=== PATIENT | male | born 1945 | race Caucasian/White ===

== ENCOUNTER 2016-07-07 09:32 | Outpatient (RCR) | payer MEDICARE, OTHER | END 2016-10-05 | disposition home or self-care (01) | LOC: ONC 09:32 | PROVIDERS: ATTEND Radiology Radiation Oncology | DX: C61 Malignant neoplasm of prostate (principal) ==

== ENCOUNTER 2016-11-16 05:30 | Outpatient (CLI) | payer MEDICARE, OTHER ==
[~2016-11-16] VITALS: Ht 177.8 cm; Wt 88.5 kg
[2016-11-16] MEDS ORDERED: LISI-552 PO (09:38)
[2016-11-16] MEDS ORDERED: CARV25TA PO (09:38)
[2016-11-16] MEDS ORDERED: FENO160T12 PO (09:38)
[2016-11-16] MEDS ORDERED: THYR90TA PO (09:51)
[2016-11-16] MEDS ORDERED: VARD20TA30 PO (09:51)
[2016-11-16] MEDS ORDERED: ASPI-586 PO (09:51)
[2016-11-16] MEDS ORDERED: NITR4.1S2 TL (09:51)
[2016-11-16] MEDS ORDERED: PRAV20TA3 PO (09:51)
== END 2016-11-16 09:55 ==
LOC: PREOP 05:30
PROVIDERS: ATTEND Otolaryngology Otolaryngology/Facial Plastic Surgery
DX: J34.3 Hypertrophy of nasal turbinates; Z01.818 Encounter for other preprocedural examination; J34.2 Deviated nasal septum

== ENCOUNTER 2016-11-23 07:34 | Day surgery (SDC) | payer MEDICARE, OTHER ==
[~2016-11-23] VITALS: Ht 177.8 cm; Wt 88.5 kg
[~2016-11-23 07:34] MED LIST: ASPI-586 PO; CARV25TA PO; FENO160T12 PO; LISI-552 PO; NITR4.1S2 TL; PRAV20TA3 PO; THYR90TA PO; VARD20TA30 PO
[2016-11-23 07:56] VITALS: BP 128/74
[2016-11-23] MEDS: LACTATED RINGERS 1,000 ML IV PRN ×2 (08:05→10:41)
--- NOTE | 2016-11-23 09:28 | Progress Note-Pre Operative ---
Pre-Operative Progress Note H&P Reviewed The H&P was reviewed, patient examined and no changes noted. Date Seen by Provider: Nov 23, 2016 Time Seen by Provider: 09:15 Date H&P Reviewed: Nov 23, 2016 Time H&P Reviewed: 09:15 Pre-Operative Diagnosis: Deviated Nasal Septum, Bilat Hyper of Inf Turbs CONNER CASSIDY MD Nov 23, 2016 9:28 am
[2016-11-23] MEDS ORDERED: ONDANSETRON 4 MG/2 ML (SDV) Z0FRAN ONE (09:51)
[2016-11-23] MEDS ORDERED: proPOfol 200 MG/20 ML (DIPRIVAN) VIAL IV ONE (09:51)
[2016-11-23] MEDS ORDERED: LACTATED RINGERS 1,000 ML IV ONE ×2 (09:51→11:00)
[2016-11-23] MEDS ORDERED: SEVOFLURANE (ULTANE) 15 ML INHAL SOLN ONE ×3 (09:51→10:04)
[2016-11-23] MEDS ORDERED: DEXAMETHASONE 10 MG/ML (DECADRON) 1 ML VIAL ONE (09:51)
[2016-11-23] MEDS ORDERED: LIDOCAINE PF 2% 5 ML (XYLOCAINE) VIAL ONE (09:51)
[2016-11-23] MEDS ORDERED: MIDAZOLAM 2 MG/2 ML (VERSED) VIAL ONE (09:52)
[2016-11-23] MEDS ORDERED: fentaNYL INJECTION 100 MCG/2 ML AMP ONE (09:52)
[2016-11-23] MEDS ORDERED: LIDOCAINE/EPI 1%-1:200,000 (XYLOCAINE) 10 ML VIAL ONE (09:53)
[2016-11-23] MEDS ORDERED: COCAINE HCL 4% 2 ML SYR ONE (09:53)
[2016-11-23] MEDS ORDERED: PHENYLEPHRINE 0.5% NASAL SPR (NEO-SYNEPHRINE) REG ONE (09:53)
[2016-11-23] MEDS ORDERED: ROCURONIUM 50 MG/5 ML (ZEMURON) VIAL IV ONE (10:04)
[2016-11-23] MEDS ORDERED: GLYCOPYRROLATE 0.2 MG/ML (ROBINUL) 2 ML VIAL ONE (11:06)
[2016-11-23] MEDS ORDERED: NEOSTIGMINE (BLOXIVERZ ) 1 MG/1ML 10 ML VIAL ONE (11:06)
[2016-11-23] MEDS ORDERED: D5 1/2 NS W/KCL 20 MEQ/L 1,000 ML IV SCH (11:07)
--- NOTE | 2016-11-23 11:07 | Progress Note-Post Operative ---
Post-Operative Progess Note Surgeon (s)/Hand I Cutter (s) Surgeon CONNER CASSIDY MD Hand I Cutter n/a Pre-Operative Diagnosis Deviated Nasal Septum, Bilat Hyper of Inf Turbs Post-Operative Diagnosis same Post-Op Procedure Note Date of Procedure: Nov 23, 2016 Name of Procedure Performed: Nasal Septoplasty, Bilat Red of Inf Turbs Description & Findings Description and Findings: n/a Anesthesia Type get Estimated Blood Loss minimal Packing none. Specimen(s) collected/removed nasal septum CONNER CASSIDY MD Nov 23, 2016 11:07 am
[2016-11-23] MEDS ORDERED: ACETAMINOPHEN 325 MG TABLET/CAPLET (TYLENOL) PO PRN (11:15)
[2016-11-23] MEDS ORDERED: HYDROcodone/APAP 5 MG/325 MG (LORTAB) TAB PO PRN (11:15)
[2016-11-23] MEDS ORDERED: PROMETHAZINE INJ 25 MG/ML (PHENERGAN) AMP IVP PRN (11:15)
[2016-11-23] MEDS ORDERED: fentaNYL INJECTION 100 MCG/2 ML AMP IVP PRN (11:30)
[2016-11-23] MEDS ORDERED: morphine INJ 10 MG/ML 1ML (SYR OR VIAL) IVP PRN (11:30)
[2016-11-23] MEDS ORDERED: ONDANSETRON 4 MG/2 ML (SDV) Z0FRAN IVP PRN (11:30)
[2016-11-23] MEDS ORDERED: HYDROmorphone (DILAUDID) 2 MG/ML VIAL IVP PRN (11:30)
[2016-11-23 12:05] VITALS: BP 128/63
[2016-11-23] MEDS ORDERED: HYDR-3812 PO (12:25)
[2016-11-23] MEDS ORDERED: AMOX-355 PO (12:26)
[2016-11-23 12:35] VITALS: BP 128/63
[2016-11-23 13:05] VITALS: BP 127/67
[2016-11-23 13:15] VITALS: BP 127/67
== END 2016-11-23 13:15 | disposition home or self-care (01) ==
LOC: SDC 07:34
PROVIDERS: ATTEND Otolaryngology Otolaryngology/Facial Plastic Surgery
DX: J34.2 Deviated nasal septum (principal); J34.3 Hypertrophy of nasal turbinates; E03.9 Hypothyroidism, unspecified; I10 Essential (primary) hypertension; Z95.810 Presence of automatic (implantable) cardiac defibrillator; Z79.82 Long term (current) use of aspirin; Z79.899 Other long term (current) drug therapy
CPT/HCPCS: 87081

== ENCOUNTER 2017-11-27 12:36 | Outpatient (RCR) | payer MEDICARE, OTHER ==
[~2017-11-27 12:36] MED LIST changes: +ACHD5005 PO; +AMOX-355 PO
== END 2018-02-25 | disposition home or self-care (01) ==
LOC: ONC 12:36
PROVIDERS: ATTEND Radiology Radiation Oncology
DX: C61 Malignant neoplasm of prostate (principal)
CPT/HCPCS: 99213

== ENCOUNTER 2018-05-22 09:36 | Outpatient (RCR) | payer MEDICARE, OTHER | END 2018-08-20 | disposition home or self-care (01) | LOC: ONC 09:36 | PROVIDERS: ATTEND Radiology Radiation Oncology | DX: C61 Malignant neoplasm of prostate (principal) ==

== ENCOUNTER 2019-03-04 09:28 | Outpatient (CLI) | payer MEDICARE, OTHER ==
[~2019-03-04] VITALS: Ht 177.8 cm; Wt 90.3 kg
[2019-03-04] MEDS ORDERED: SILD20TA14 PO (09:53)
[2019-03-04] MEDS ORDERED: ASPI-586 PO (09:53)
[2019-03-04] MEDS ORDERED: THYR120T2 PO (09:53)
[2019-03-04] MEDS ORDERED: NITR4.9S6 TL (09:53)
[2019-03-04 09:56] VITALS: BP 142/79
== END 2019-03-04 10:20 | disposition home or self-care (01) ==
LOC: PREOP 09:28
PROVIDERS: ATTEND Radiology Radiation Oncology
DX: Z01.818 Encounter for other preprocedural examination (principal)
CPT/HCPCS: 87081

== ENCOUNTER 2019-03-12 11:09 | Day surgery (SDC) | payer MEDICARE, OTHER ==
[~2019-03-12] VITALS: Ht 177.8 cm; Wt 90.3 kg
[2019-03-12] VITALS (11 sets, daily range): BP systolic 129–147; BP diastolic 73–95
[~2019-03-12 11:09] MED LIST changes: +NITR4.9S6 TL; +SILD20TA14 PO; +THYR120T2 PO
[2019-03-12] MEDS ORDERED: LACTATED RINGERS 1,000 ML IV PRN (11:22)
[2019-03-12] MEDS ORDERED: LEVOFLOXACIN 500 MG/100 ML IV 100 ML IV ONE (11:30)
--- NOTE | 2019-03-12 11:35 | Progress Note-Pre Operative ---
Pre-Operative Progress Note H&P Reviewed The H&P was reviewed, patient examined and no changes noted. Date Seen by Provider: Mar 12, 2019 Time Seen by Provider: 11:34 Date H&P Reviewed: Mar 12, 2019 Time H&P Reviewed: 11:34 Pre-Operative Diagnosis: Prostate cancer cT1c, PSA 10.54, [place] 7 (3+4) BENIGNO DANIELS MD Mar 12, 2019 11:35
--- NOTE | 2019-03-12 11:41 | Discharge Inst-Simple/Standard ---
Discharge Inst-Standard Reconcile Patient Problems Problems Reviewed?: Yes Discharge Medications New, Converted or Re-Newed RX: RX Given to Pt/Family Patient Instructions/Follow Up Plan of Care/Instructions/FU: 1)follow up Sunday04/08/19 at 10:30 a.m. Via [facility] for post implant scan 2)follow up Sunday04/14/19 at 2:[address] Chacon's office in [place] Activity as Tolerated: Yes Discharge Diet: No Restrictions Other Inst to Patient Please instruct patient on amaya catheter removal Tuesday 03/14 or Friday 03/17 - date per Dr. Chacon. BENIGNO DANIELS MD Mar 12, 2019 11:41
[2019-03-12] MEDS ORDERED: IOPAMIDOL 61% 30 ML (ISOVUE 300) VIAL IV ONE (13:11)
[2019-03-12] MEDS ORDERED: BACITRACIN OINTMENT 28 GM TUBE ONE (13:11)
[2019-03-12] MEDS ORDERED: DEXAMETHASONE 10 MG/ML (DECADRON) 1 ML VIAL ONE (13:29)
[2019-03-12] MEDS ORDERED: proPOfol 200 MG/20 ML (DIPRIVAN) VIAL IV ONE (13:29)
[2019-03-12] MEDS ORDERED: SEVOFLURANE (ULTANE) 15 ML INHAL SOLN ONE ×6 (13:29→15:17)
[2019-03-12] MEDS ORDERED: LIDOCAINE PF 2% 5 ML (XYLOCAINE) VIAL ONE (13:29)
[2019-03-12] MEDS ORDERED: ONDANSETRON 4 MG/2 ML (SDV) Z0FRAN ONE (13:29)
[2019-03-12] MEDS ORDERED: MIDAZOLAM 2 MG/2 ML (VERSED) VIAL ONE (13:30)
[2019-03-12] MEDS ORDERED: fentaNYL INJECTION 100 MCG/2 ML AMP ONE (13:31)
--- NOTE | 2019-03-12 15:40 | Anesthesia-General Post-Op ---
General Patient Condition Mental Status/LOC: Same as Preop Cardiovascular: Satisfactory Nausea/Vomiting: Absent Respiratory: Satisfactory Pain: Controlled Complications: Absent Post Op Complications Complications None Follow Up Care/Instructions Patient Instructions None needed. Anesthesia/Patient Condition Patient Condition Patient is doing well, no complaints, stable vital signs, no apparent adverse anesthesia problems. No complications reported per nursing. MIKKI TAPIA CRNA Mar 12, 2019 15:40
[2019-03-12] MEDS ORDERED: ONDANSETRON 4 MG/2 ML (SDV) Z0FRAN IVP PRN (15:45)
[2019-03-12] MEDS ORDERED: fentaNYL INJECTION 100 MCG/2 ML AMP IVP ONE (15:45)
[2019-03-12] MEDS ORDERED: morphine INJ 10 MG/ML 1ML (SYR OR VIAL) IVP ONE (15:45)
--- NOTE | 2019-03-12 16:02 | Progress Note-Post Operative ---
Post-Operative Progess Note Surgeon (s)/Electrician Third (s) Surgeon BENIGNO DANIELS MD Electrician Third: Marco A VARGHESE MD Pre-Operative Diagnosis Prostate cancer cT1c, PSA 10.54, [place] 7 (3+4) Post-Operative Diagnosis Same as pre-op Procedure & Operative Findings Date of Procedure 03/12/19 Procedure Performed/Findings (1) 100% Cesium 131 permanent prostate seed implant with cystogram (2) Injection of biodegradable prostate-rectal spacer utilizing the SpaceOAR system Prostate volume 45 cc Anesthesia Type General Estimated Blood Loss Estimated blood loss (mL): Minimal Specimens/Packing Specimens Removed None Packing: None internal - ABD applied to perineum BENIGNO DANIELS MD Mar 12, 2019 16:02
--- NOTE | 2019-03-12 16:25 | NUR ---
TO AMB SURG FROM PAR PER CART. ALERT, REPORTS PELVIC/PENILE "PRESSURE" TYPE DISCOMFORT RATED 1-2 ON NUMERIC SCALE. FAY CATH INTACT, PATENT TO DD BAG ON LOWER BED RAIL. CATH SECURED TO RIGHT LEG WITH STATLOCK. URINE CLEAR, MEDIUM THAKKAR IN COLOR IN TUBING. NO BLEEDING AT PERINEUM OR AT PENILE MEATUS. PO FLUIDS PROVIDED.
--- NOTE | 2019-03-12 18:30 | NUR ---
TAKING PO FLUIDS WITHOUT PROBLEM. NO CHANGE IN SITE OR PAIN ASSESSMENTS. ALERT AND CONVERSATIONAL WITH AND STAFF. PRESCRIPTIONS FOR CIPRO [facility] FAY TO LEG BAG FOR DISMISSAL. DISCHARGE INSTRUCTIONS AND FAY CARE DISCUSSED WITH AND DEMONSTRATED TO PT AND PT'S . SUPPLIES SENT WITH PT FOR CATH CARE AND REMOVAL. PT AND VERBALIZED UNDERSTANDING OF INSTRUCTIONS AND STATE THEY ARE READY FOR DISMISSAL.
--- NOTE | 2019-03-12 19:23 | Diagnostic Imaging Report ---
INDICATION: Prostate cancer. Intraoperative fluoroscopy views were obtained during radiation seed implant per Dr. Abraham. Fluoroscopy views demonstrate multiple metallic radiation seeds overlying the prostate region. Subsequent view demonstrates contrast in the urinary bladder with Hernandez catheter in place. 10 seconds of fluoroscopy time was used in surgery. IMPRESSION: Intraoperative fluoroscopy views obtained during brachytherapy of treatment. Dictated by: Dictated on workstation # [id number]
== END 2019-03-12 18:47 | disposition home or self-care (01) ==
LOC: SDC 11:09
PROVIDERS: ATTEND Radiology Radiation Oncology
DX: C61 Malignant neoplasm of prostate (principal); I42.9 Cardiomyopathy, unspecified; I25.119 Atherosclerotic heart disease of native coronary artery with unspecified angina pectoris; I10 Essential (primary) hypertension; E03.9 Hypothyroidism, unspecified; E78.00 Pure hypercholesterolemia, unspecified; N52.9 Male erectile dysfunction, unspecified; Z87.891 Personal history of nicotine dependence; Z83.6 Family history of other diseases of the respiratory system
CPT/HCPCS: 76965; 77290; 77318; 77332; 77370; 77470; 77778

== ENCOUNTER → 2019-04-08 | Outpatient (RCR) | payer MEDICARE, OTHER | END | disposition home or self-care (01) | LOC: ONC 01-08 09:34 | PROVIDERS: ATTEND Radiology Radiation Oncology | DX: C61 Malignant neoplasm of prostate (principal) | CPT/HCPCS: 76873; 77290; 99213 ==